=== PATIENT | male | born 1985 | race Caucasian/White ===

== ENCOUNTER 2023-08-05 14:41 | Emergency (ER) | payer BC, SELFPAY ==
[2023-08-05 14:43] VITALS: BP 130/77; PULSE 95; RESP 18; TEMP 37.2; O2SAT 99
--- NOTE | 2023-08-05 15:00 | DI.RAD_ITS ---
Exam(s) XR ANKLE RT COMPLETE XR FOOT RT COMPLETE EXAM: XR ANKLE RT COMPLETE and XR foot RT complete CLINICAL HISTORY: fall, lateral and medial ankle pain. TECHNIQUE: 2D digital imaging was performed of the right ankle. Seven images were obtained. AP, la teral and oblique views were obtained. COMPARISON: There are no priors for comparison. FINDINGS: BONES: No acute fracture is present. No bony destructive lesion is seen. JOINTS: The ankle mortise is normally aligned. The joint spaces are well maintained. SOFT TISSUE: There is mild soft tissue swelling around the ankle. IMPRESSION: No acute fracture or dislocation of the right ankle or foot. DATA REPOSITORY: RADIATION DOSE DELIVERED:
--- NOTE | 2023-08-05 15:06 | ED.GENADUL_ITS ---
Discharge Plan Disposition Patient Disposition: Home Discharge Details Chief Complaint: Orthopedic Clinical Impression: Ankle sprain Primary Care Provider: Hira Cedillo III ED Provider: Kenan Nina Discharge Instructions Instructions: Ankle Sprain (ED) Additional Instructions: Please continue with ice elevation and rest, ibuprofen and/or acetaminophen as needed Stand Alone Forms: Work Release Medical Decision Making 38-year-old male [place], ambulatory after injury, pain to ankle with ecchymosis over medial malleolus and some edema to level of lateral malleolus, no calcaneal tenderness, intact Achilles function with normal plantarflexion, normal dorsiflexion as well, DP pulse intact soft compartments warm well perfused extremity, no proximal fibular findings, full range of motion at knee, ambulatory without assistance. Likely sprain lower suspicion for fracture or dislocation. Will obtain x-ray, will provide anti- inflammatory and analgesia in the form of Toradol, likely Seth wrap with instructions to ice elevate and rest. Disposition pending reassess 15: 38 patient resting comfortably no acute distress. No evidence of fracture or dislocation. Home care instructions and return precautions given. Likely low-grade sprain HPI General Date/Time Provider Initiated Documentation: 08/05/23 14:50 . HPI Narrative: 38-year-old male presents after fall while jumping onto an inflatable surface at the [facility], pain to right ankle after rolling it. Is able to ambulate without issues. No other trauma. No knee pain no back pain. General Stated Complaint: Orthopedic KRISTIN: 4 Review of Systems Narrative: Review of Systems Constitutional: negative Eyes: negative ENT: negative Cardiovascular: negative Respiratory: negative Gastrointestinal: negative : negative Musculoskeletal: Ankle pain Skin: negative Neurologic: negative Psych: negative PFSH All Active Problems (Updated 08/05/23 @ 15:38 by Kenan Nina MD) Ankle sprain (Acute) Social History Smoking/Tobacco Use Status: Never Smoking risk assessment performed?: Yes Alcohol Intake: never Substance use type: does not use Housing: house Do you feel safe at home: Yes Do you feel safe in your relationship?: Yes Exam Narrative Exam Narrative: Physical Examination General: alert, awake, cooperative, resting comfortably, no acute distress Neuro: AAOx3, normal speech, moving all extremities Extremities: Swelling and ecchymosis to medial ankle tenderness over medial malleolus, some edema to level of lateral malleolus, able to plantarflex and dorsiflex ankle with full strength, no tenderness over Achilles or calcaneus, DP pulse intact warm well-perfused extremity, no proximal fibular head tenderness or knee pathology noted Psych: Appropriate mood and affect Course Vital Signs Vital signs: Vital Signs Temperature 37.2 C 08/05/23 14:43 Pulse 95 H 08/05/23 14:43 Respiratory Rate 18 08/05/23 14:43 Blood Pressure 130/77 08/05/23 14:43 Pulse Oximetry 99 08/05/23 14:43 Temperature 37.2 C 08/05/23 14:43 Temperature Source Temporal Artery Scan 08/05/23 14:43 Pulse 95 H 08/05/23 14:43 Respiratory Rate 18 08/05/23 14:43 Blood Pressure 130/77 08/05/23 14:43 Blood Pressure Position Sitting 08/05/23 14:43 Pulse Oximetry 99 08/05/23 14:43 Oxygen Delivery Method Room Air 08/05/23 14:43 Oxygen Flow Rate 0 08/05/23 14:43
[2023-08-05] MEDS: Ketorolac 15 MG/ML VIAL IM (15:21)
--- NOTE | 2023-08-05 15:24 | DI.VRAD_ITS ---
PROCEDURE INFORMATION: Exam: XR Right Foot Exam date and time: 08/05/2023 3:11 PM Age: 38 years old Clinical indication: Other: Fall lat medial ankle pain TECHNIQUE: Imaging protocol: Radiologic exam of the right foot. Views: 3 or more views. COMPARISON: No relevant prior studies available. FINDINGS: Bones/joints: Degenerative changes in the IP joint. There is no evidence of acute fracture in any of the visualized osseous structures.. There is no evidence of malalignment or dislocation of any visualized joint. Soft tissues: Normal. IMPRESSION: 1. There is no evidence of acute fracture in any of the visualized osseous structures.. 2. There is no evidence of malalignment or dislocation of any visualized joint. Dictated and Authenticated by: Yuli Vanegas MD. Ordering:ANTWAN Grayson MD
--- NOTE | 2023-08-05 15:24 | DI.VRAD_ITS ---
PROCEDURE INFORMATION: Exam: XR Right Ankle Exam date and time: 08/05/2023 3:13 PM Age: 38 years old Clinical indication: Other: Fall lat medial ankle pain TECHNIQUE: Imaging protocol: Radiologic exam of the right ankle. Views: 3 or more views. COMPARISON: CR XR FOOT RT COMPLETE 08/05/2023 3:11 PM FINDINGS: Bones/joints: There is no evidence of acute fracture in any of the visualized osseous structures.. There is no evidence of malalignment or dislocation of any visualized joint. Soft tissues: Mild lateral malleolar soft tissue swelling IMPRESSION: 1. There is no evidence of acute fracture in any of the visualized osseous structures.. 2. There is no evidence of malalignment or dislocation of any visualized joint. Dictated and Authenticated by: Yuli Vanegas MD. Ordering:ANTWAN Grayson MD
== END 2023-08-05 15:48 | disposition home or self-care (01) ==
PROVIDERS: Emergency Provider Emergency Medicine; PCP Pediatrics
DX: S93.401A Sprain of unspecified ligament of right ankle, initial encounter (principal); X50.9XXA Other and unspecified overexertion or strenuous movements or postures, initial encounter; Y93.39 Activity, other involving climbing, rappelling and jumping off; Y92.89 Other specified places as the place of occurrence of the external cause; Y99.9 Unspecified external cause status
CPT/HCPCS: 96372; 99283; 73610; 73630; J1885

== ENCOUNTER 2025-04-22 08:36 | Outpatient (REF) | payer BC, SELFPAY ==
[2025-04-22 14:59] LABS: Hemoglobin A1C 5.5 % (<5.7)
[2025-04-22 15:16] LABS: ALT 24 U/L (16-63); AST 24 U/L (15-37); Albumin 3.9 g/dL (3.4-5.0); Alkaline Phosphatase 101 U/L (46-116); Anion Gap 7.7 mmol/L (3-11); BUN 16 mg/dL (7-18); Bilirubin, Total 0.3 mg/dL (0.2-1.0); CO2 29.3 mmol/L (21.0-32.0); CREATININE 1.2 mg/dL (0.70-1.30); Calcium 9.2 mg/dL (8.5-10.1); Calculated LDL 93 mg/dL (<100); Chloride 103 mmol/L (98-107); Cholesterol 145 mg/dL (<200); Estimated GFR 78.89 (mL/min/1.73m2); Glucose 103 mg/dL (74-106); HDL Cholesterol 40 mg/dL (>or=40); Potassium 4.3 mmol/L (3.5-5.1); Sodium 140 mmol/L (136-145); Total Protein 7.4 g/dL (6.4-8.2); Triglyceride 61 mg/dL (<150)
== END 2025-04-22 08:37 | disposition home or self-care (01) ==
LOC: NCHCN 08:36
PROVIDERS: PCP Pediatrics; Visit Provider Internal Medicine
DX: Z13.220 Encounter for screening for lipoid disorders (principal); Z13.1 Encounter for screening for diabetes mellitus
CPT/HCPCS: 80053; 80061; 83036